=== PATIENT | male | born 1965 | race Caucasian/White ===

== ENCOUNTER 2018-09-29 14:27 | Inpatient (IN) | payer MEDICAID ==
[~2018-09-29] VITALS: Ht 182.9 cm; Wt 80.4 kg
[2018-09-29] MEDS ORDERED: acetaminophen 325mg tablet PO STA (14:52)
[2018-09-29] MEDS ORDERED: normal saline 1000ML IV soln IV ONE (14:55)
[2018-09-29] MEDS ORDERED: ipratropium/albuterol 3ml nebule NEB ONE (14:55)
[2018-09-29] MEDS ORDERED: methylPREDNISolone sod succ 125mg/2ml vial IV ONE (14:55)
[2018-09-29] MEDS ORDERED: levoFLOXACIN-Levaquin 750MG/D5 150 ML IV ONE (16:15)
[2018-09-29] MEDS ORDERED: vancomycin/NS 1 GM ADD-VANTAGE 250 ML IV ONE (16:15)
[2018-09-29 16:50] LABS: CLARITY,URINE SLIGHTLY CLOUDY (Clear); COLOR,URINE GREEN (Yellow); GLUCOSE, URINE NEGATIVE (Neg); KETONES,URINE NEGATIVE (Neg); LEUKOCYTE ESTERASE ,URINE NEGATIVE (Neg); NITRITES, URINE NEGATIVE (Neg); OCCULT BLOOD,URINE MODERATE (Neg); PROTEIN,URINE 30 mg/dl (Neg); UROBILINOGEN,URINE >=8.0 E.U/dL (0.2-1.0)
[2018-09-29 16:51] LABS: UA COLLECTION TYPE URINAL
[2018-09-29 16:53] LABS: BASOPHILS % (AUTO) 0.3 % (0-1); EOSINOPHILS % (AUTO) 0 % (0-6); HEMATOCRIT 32.6 % (42.0-52.0); HEMOGLOBIN 10.8 g/dl (14.0-17.9); LYMPHOCYTES # (AUTO) 1.3 X10'3 (1.1-4.8); LYMPHOCYTES % (AUTO) 8.4 % (21-51); MEAN CORPUSCULAR HEMOGLOBIN 33.9 PG (27.0-31.0); MEAN CORPUSCULAR VOLUME 102.7 FL (78-98); MEAN PLATELET VOLUME 9.1 FL (7.4-10.4); MONOCYTES % (AUTO) 12.9 % (2-12); NEUTROPHILS % (AUTO) 78.4 % (42-75); PLATELET COUNT 401 X10'3 (140-440); RED BLOOD COUNT 3.18 X10'6 (4.70-6.10); RED CELL DISTRIBUTION WIDTH 14.7 % (11.5-14.5); WHITE BLOOD COUNT 15.3 X10'3 (4.5-11.0)
[2018-09-29 17:08] LABS: SQUAMOUS EPITHELIAL CELL,UR FEW /LPF (FEW)
[2018-09-29 17:09] LABS: BACTERIA,URINE 1+ /HPF (Neg); FINE GRANULAR CAST 0-3 /LPF (NEGATIVE); RBC,URINE 0-2 /HPF (0-2); WBC,URINE 0-4 /HPF (0-4)
--- NOTE | 2018-09-29 17:20 | NUR ---
FOUND EXTENDED IV INFILTRATED. CALLED PHARMACY REGUARDING EXTRAVASATION OF LEVAQUIN. PHARMACIST STATES THAT IRRITATION IS MINIMAL AND WARM COMPRESSES ARE APPROPRIATE.
[2018-09-29 17:22] LABS: ALANINE AMINOTRANSFERASE 159 U/L (12-78); ALBUMIN 2.6 G/DL (3.4-5.0); ALBUMIN/GLOBULIN RATIO 0.7 (1.1-1.5); ALKALINE PHOSPHATASE 47 IU/L (46-116); ANION GAP 6 (8-16); ASPARTATE AMINO TRANSFERASE 128 U/L (10-37); BLOOD UREA NITROGEN 21 MG/DL (7-18); BUN/CREATININE RATIO 20.8 (5.4-32.0); CALCIUM 8.5 MG/DL (8.5-10.1); CHLORIDE 102 MMOL/L (99-107); CREATININE 1.01 MG/DL (0.60-1.10); GLUCOSE 95 MG/DL (70-104); SODIUM 140 MMOL/L (135-145); TOTAL CARBON DIOXIDE 31.8 MMOL/L (24-32); TOTAL PROTEIN 6.6 G/DL (6.4-8.2); eGFR 77 ML/MIN
[2018-09-29 17:54] LABS: TOTAL CELLS COUNTED 100
[2018-09-29 17:55] LABS: PLATELET ESTIMATE NORMAL; TOXIC GRANULATION 1+
[2018-09-29] MEDS ORDERED: morphine 4 MG/ML inj SYRINge IM ONE (17:55)
[2018-09-29 17:56] LABS: POLYCHROMASIA FEW; SCHISTOCYTES 1+
[2018-09-29] MEDS ORDERED: morphine 4 MG/ML inj SYRINge IV ONE (18:00)
--- NOTE | 2018-09-29 19:19 | NUR ---
Patient standing up in the door, vital sign equipment disconnected, IV tubing is disconnected (though meds/fluids completed). Assisted back to room, reconnected to vital sign monitor, new tubing for IV's obtained. Vanc started as ordered, 2nd liter of IV fluids hung.
[2018-09-29] MEDS ORDERED: BENZ1TAB7 PO (19:29)
[2018-09-29] MEDS ORDERED: QUET50TA22 PO (19:29)
[2018-09-29] MEDS ORDERED: DAPS100T2 PO (19:29)
[2018-09-29] MEDS ORDERED: DOLU50TA PO (19:29)
[2018-09-29] MEDS ORDERED: EMTR1TAB18 PO (19:29)
[2018-09-29] MEDS ORDERED: ERGO500056 PO (19:29)
[2018-09-29] MEDS ORDERED: morphine 4 MG/ML inj SYRINge IV PRN ×2 (19:50)
[2018-09-29] MEDS ORDERED: magnesium hydroxide 30ml (MOM) UD suspension PO PRN (19:50)
[2018-09-29] MEDS ORDERED: acetaminophen 325mg tablet PO PRN (19:50)
[2018-09-29] MEDS ORDERED: ondansetron/PF 4mg/2ml inj IV PRN (19:50)
[2018-09-29] MEDS ORDERED: mag hydrox/Alum hydrox/simeth 30ml oral suspension PO PRN (19:50)
[2018-09-29] MEDS ORDERED: vancomycin/NS 1 GM ADD-VANTAGE 250 ML IV SCH (20:00)
--- NOTE | 2018-09-29 20:35 | NUR ---
Report received from Shyam EWING, awaiting patient arrival from ED.
--- NOTE | 2018-09-29 20:41 | NUR ---
Awaiting avail transport monitor to take patient to floor.
[2018-09-29 21:00] VITALS: BP 156/92
[2018-09-29] MEDS: dextrose 5%-1/2 normal saline 1,000 ML IV SCH (23:00)
[2018-09-29] MEDS: vancomycin inj 1,250 MG in normal saline 250ml IV soln 250 ML IV SCH (23:48)
[2018-09-30] VITALS: BP 154/86
[2018-09-30] MEDS ORDERED: LORazepam 2 mg/ml vial IV ONE (01:15)
--- NOTE | 2018-09-30 02:38 | NUR ---
PATIENT REFUSED CANARY RAISER.
--- NOTE | 2018-09-30 04:30 | NUR ---
PATIENT REFUSED NASAL CANNULA AND OXYGEN. WILL CONTINUE TO MONITOR. PATIENT PACING HALLWAYS, STATES "I'M FINE" AND SHRUGS SHOULDERS.
[2018-09-30] MEDS: dextrose 5%-1/2 normal saline 1,000 ML IV SCH ×2 (05:47→15:47)
--- NOTE | 2018-09-30 06:17 | NUR ---
Patient in room LUCY 340. I have received report from GILDARDO Noble and had the opportunity to ask questions and assume patient care.
--- NOTE | 2018-09-30 06:43 | NUR ---
Problems reprioritized. Patient report given, questions answered & plan of care reviewed with Scarlet EWING.
[2018-09-30 07:00] VITALS: BP 115/91
[2018-09-30 07:52] LABS: BASOPHILS # (AUTO) 0.1 X10'3 (0-0.2); BASOPHILS % (AUTO) 0.4 % (0-1); EOSINOPHILS % (AUTO) 0.1 % (0-6); HEMATOCRIT 35.5 % (42.0-52.0); LYMPHOCYTES % (AUTO) 7.7 % (21-51); MEAN CORPUSCULAR HEMOGLOBIN 34.8 PG (27.0-31.0); MEAN CORPUSCULAR HGB CONC 33.8 g/dL (33.0-36.5); MEAN CORPUSCULAR VOLUME 102.9 FL (78-98); MONOCYTES # (AUTO) 1.6 X10'3 (0-0.9); MONOCYTES % (AUTO) 12.3 % (2-12); NEUTROPHILS % (AUTO) 79.5 % (42-75); PLATELET COUNT 385 X10'3 (140-440); RED BLOOD COUNT 3.45 X10'6 (4.70-6.10); RED CELL DISTRIBUTION WIDTH 14.4 % (11.5-14.5); WHITE BLOOD COUNT 12.6 X10'3 (4.5-11.0)
[2018-09-30] MEDS: levoFLOXACIN-Levaquin 750MG/D5 150 ML IV SCH (08:00)
[2018-09-30] MEDS: vancomycin inj 1,250 MG in normal saline 250ml IV soln 250 ML IV SCH ×2 (08:00→16:00)
[2018-09-30 08:02] LABS: ALBUMIN 2.6 G/DL (3.4-5.0); ANION GAP 7 (8-16); BLOOD UREA NITROGEN 23 MG/DL (7-18); BUN/CREATININE RATIO 26.1 (5.4-32.0); CALCIUM 8.6 MG/DL (8.5-10.1); CHLORIDE 103 MMOL/L (99-107); CREATININE 0.88 MG/DL (0.60-1.10); GLUCOSE 102 MG/DL (70-104); POTASSIUM 4.5 MMOL/L (3.5-5.1); SODIUM 138 MMOL/L (135-145); TOTAL CARBON DIOXIDE 27.8 MMOL/L (24-32); eGFR 90 ML/MIN
[2018-09-30] MEDS: enoxaparin 40mg/0.4ml syringe SUBCUT SCH (09:26)
[2018-09-30] MEDS ORDERED: OLANZapine 2.5MG tablet PO SCH (09:50)
[2018-09-30] MEDS: HYDROcodone/acetaminophen 10/325mg tab PO PRN (10:22)
--- NOTE | 2018-09-30 10:34 | NUR ---
Pt continues to remove O2 mask dropping sats. Reminded frequently. Placed closer to nursing station for obs. Phone MD for RT orders.
[2018-09-30] MEDS ORDERED: LORazepam 0.5 MG tablet PO PRN (10:35)
[2018-09-30] MEDS ORDERED: haloperidol lactate 5mg/ml inj IM ONE (10:35)
[2018-09-30] MEDS: predniSONE 20 mg tablet PO SCH (11:41)
[2018-09-30] MEDS: benztropine 1mg tablet PO SCH (11:41)
[2018-09-30] MEDS ORDERED: levoFLOXACIN 750MG TABLET PO ONE (11:55)
[2018-09-30] MEDS ORDERED: linezolid 600mg tablet PO ONE (11:55)
[2018-09-30] MEDS: ipratropium/albuterol 3ml nebule NEB SCH ×4 (11:57→23:05)
[2018-09-30 12:15] LABS: ABG BASE EXCESS -0.3 mmol/L (-2.0-3.0); ABG HCO3 24.3 mmol/L (22.0-26.0); ABG OXYGEN SATURATION 96.1 % (95-98); ABG PCO2 (T) 39.5 mmHg (35.0-48.0); ABG PH (T) 7.406 (7.350-7.450); ABG PO2 (T) 95.3 mmHg (83-108); ALLEN'S TEST Positive; FCOHb 2.3 % (0.5-1.5); FLOW 10 L/min; FMetHb 1.7 % (0.3-1.12); FO2Hb 92.3 % (94-100); TOTAL HEMOGLOBIN 12.2 G/dl (14.0-18.0)
--- NOTE | 2018-09-30 17:02 | NUR ---
Spoke with Dr South choudhury. pts increasing O2 demand. Pt currently 85% on 12 liter highflow. following RT Tx. Latest ABG otherwise normal. Pt using accessory muscles to breath and is cooperative with keeping O2 in place. Pt reports becoming dizzy with standing. Orders to Tx to Tele with Bipap were received. Awaiting bed assignment.
--- NOTE | 2018-09-30 17:30 | NUR ---
Tx pt to Tele via w/c on 15L O2. due to respiory decline. Pt to receive Bipap. RT paged to meet on unit with device. TX care to RT Laisha at bedside with Bipap. All belongings tx. Mother notified of condition and room change.
[2018-09-30 17:42] VITALS: BP 144/82
--- NOTE | 2018-09-30 17:46 | NUR ---
PAGER ID: [phone] MESSAGE: WE NEED BI PAP SETTINGS FOR PATIENT IN 5962M WHO JUST CAME FROM SURGICAL
--- NOTE | 2018-09-30 17:47 | NUR ---
PATIENT RECEIVED TO ROOM 3025A FROM SURGICAL SATS ARE 94% AND BP IS 144/82 , PATIENT IS ALERT AND ORIENTATED AND ANSWERING QUESTIONS. O2 FLOW AT 12 AND TURNED DOWN TO 10. PATIENT DOES NOT HAVE INCREASED WORK OF BREATHING AND IS RELAXD AT THIS TIME. LEAVING THE BIPAP OFF FOR NOW AND AWAITING SETTINGS FROM DR SHEETS.
--- NOTE | 2018-09-30 17:53 | NUR ---
SATS GOAL IS 88-90 % AND BIPAP IS NEEDED , PLACED AT THE BEDSIDE
[2018-09-30 19:00] VITALS: BP 138/82
[2018-09-30] MEDS: QUEtiapine 25mg tablet PO SCH (21:12)
[2018-09-30] MEDS: HYDROcodone/acetaminophen 5mg/325mg tablet PO PRN (21:14)
[2018-09-30 23:00] VITALS: BP 118/67
[2018-09-30] MEDS ORDERED: VANCOMYCIN LEVEL IV NR (23:30)
[2018-10-01] MEDS: ipratropium/albuterol 3ml nebule NEB SCH ×6 (02:37→23:00)
[2018-10-01] MEDS: dextrose 5%-1/2 normal saline 1,000 ML IV SCH ×3 (02:39→20:34)
[2018-10-01] MEDS: vancomycin inj 1,250 MG in normal saline 250ml IV soln 250 ML IV SCH ×3 (02:39→15:57)
[2018-10-01 03:00] VITALS: BP 100/50
--- NOTE | 2018-10-01 06:10 | NUR ---
Patient in room PCU 3025. I have received report from Froylan EWING and had the opportunity to ask questions and assume patient care.
[2018-10-01 06:18] LABS: EOSINOPHILS % (AUTO) 0.1 % (0-6); WHITE BLOOD COUNT 7.7 X10'3 (4.5-11.0)
[2018-10-01 06:26] LABS: BASOPHILS % (AUTO) 0.2 % (0-1); HEMATOCRIT 35.3 % (42.0-52.0); HEMOGLOBIN 11.8 g/dl (14.0-17.9); LYMPHOCYTES % (AUTO) 13.5 % (21-51); MEAN CORPUSCULAR HEMOGLOBIN 35.1 PG (27.0-31.0); MEAN CORPUSCULAR HGB CONC 33.6 g/dL (33.0-36.5); MEAN CORPUSCULAR VOLUME 104.5 FL (78-98); MEAN PLATELET VOLUME 8.7 FL (7.4-10.4); MONOCYTES # (AUTO) 0.8 X10'3 (0-0.9); MONOCYTES % (AUTO) 10.8 % (2-12); NEUTROPHILS # (AUTO) 5.8 X10'3 (1.8-7.7); NEUTROPHILS % (AUTO) 75.4 % (42-75); PLATELET COUNT 364 X10'3 (140-440); RED BLOOD COUNT 3.37 X10'6 (4.70-6.10)
[2018-10-01 06:27] LABS: ALBUMIN 2.2 G/DL (3.4-5.0); ANION GAP 3 (8-16); BLOOD UREA NITROGEN 17 MG/DL (7-18); BUN/CREATININE RATIO 19.3 (5.4-32.0); CALCIUM 8.3 MG/DL (8.5-10.1); CHLORIDE 103 MMOL/L (99-107); CREATININE 0.88 MG/DL (0.60-1.10); GLUCOSE 105 MG/DL (70-104); POTASSIUM 4.6 MMOL/L (3.5-5.1); SODIUM 140 MMOL/L (135-145); TOTAL CARBON DIOXIDE 33.9 MMOL/L (24-32); eGFR 90 ML/MIN
[2018-10-01 06:53] VITALS: BP 121/72
[2018-10-01] MEDS: predniSONE 20 mg tablet PO SCH (08:57)
[2018-10-01] MEDS: enoxaparin 40mg/0.4ml syringe SUBCUT SCH (08:57)
[2018-10-01] MEDS: HYDROcodone/acetaminophen 10/325mg tab PO PRN (09:05)
[2018-10-01] MEDS: levoFLOXACIN-Levaquin 750MG/D5 150 ML IV SCH (09:10)
[2018-10-01] MEDS: olanzapine 10mg tablet PO SCH (09:24)
[2018-10-01] MEDS: benztropine 1mg tablet PO SCH (09:25)
[2018-10-01 11:00] VITALS: BP 125/69
--- NOTE | 2018-10-01 12:13 | NUR ---
Paged hospitalist, "Roberta [phone], Please call at your convenience (nonemergent) re: [phone]."
--- NOTE | 2018-10-01 15:01 | NUR ---
Rene hospitalist, "Roberta [phone]- Rm. [phone] A, please call nurse kristian." Awaiting summons server back. Wish to make MD aware of med req. and having difficulty Addendum: 10/01/18 at 1507 by Roberta Wilde RN with bringing up phlegm.
[2018-10-01] MEDS ORDERED: benzonatate 100mg capsule PO PRN (15:10)
--- NOTE | 2018-10-01 15:44 | NUR ---
Paged hosptialist "Roberta [phone]- Rm. [phone] A. Home meds have been reviewed. He takes them all."
[2018-10-01 15:45] VITALS: BP 123/72
[2018-10-01] MEDS: Emtricitabine/Tenofov Alafenam (Descovy 200-25 mg Tablet) PO SCH (16:50)
--- NOTE | 2018-10-01 17:28 | NUR ---
Paged hospitalist "Roberta [phone]- Rm. [phone] A. Pharmacist continued meds b/c he saw it in your progress noted. Also noted a soft/liquid stool (4th one this shift) Immodium okay to order?"
[2018-10-01] MEDS: DAPSONE 100 MG TABLET PO SCH (17:54)
--- NOTE | 2018-10-01 18:19 | NUR ---
Problems reprioritized. Patient report given, questions answered & plan of care reviewed with WILLIAM EWING.
--- NOTE | 2018-10-01 18:27 | NUR ---
Patient in room PCU 3025. I have received report from Roberta EWING and had the opportunity to ask questions and assume patient care.
[2018-10-01 19:00] VITALS: BP 150/84
[2018-10-01] MEDS ORDERED: benztropine 1mg tablet PO SCH (20:00)
[2018-10-01] MEDS: HYDROcodone/acetaminophen 5mg/325mg tablet PO PRN (20:40)
[2018-10-01] MEDS: QUEtiapine 25mg tablet PO SCH (20:40)
[2018-10-01] MEDS ORDERED: QUETIAPINE FUMARATE PO SCH (21:00)
[2018-10-01 23:00] VITALS: BP 117/70
[2018-10-02] MEDS: vancomycin inj 1,250 MG in normal saline 250ml IV soln 250 ML IV SCH ×3 (00:09→17:00)
[2018-10-02 03:00] VITALS: BP 108/54
[2018-10-02] MEDS: ipratropium/albuterol 3ml nebule NEB SCH ×6 (03:16→23:18)
[2018-10-02 06:00] VITALS: BP 131/85
--- NOTE | 2018-10-02 06:41 | NUR ---
Patient in room PCU 3025. I have received report from Froylan EWING and had the opportunity to ask questions and assume patient care.
[2018-10-02] MEDS ORDERED: VANCOMYCIN LEVEL IV NR (07:30)
[2018-10-02] MEDS: dextrose 5%-1/2 normal saline 1,000 ML IV SCH (07:47)
[2018-10-02] MEDS ORDERED: furosemide 20 MG/2 ML vial IV SCH (08:00)
[2018-10-02] MEDS: Emtricitabine/Tenofov Alafenam (Descovy 200-25 mg Tablet) PO SCH (08:00)
[2018-10-02] MEDS: olanzapine 10mg tablet PO SCH (08:39)
[2018-10-02] MEDS: benztropine 1mg tablet PO SCH (08:39)
[2018-10-02] MEDS: levoFLOXACIN-Levaquin 750MG/D5 150 ML IV SCH (08:39)
[2018-10-02] MEDS: predniSONE 20 mg tablet PO SCH (08:40)
[2018-10-02] MEDS: enoxaparin 40mg/0.4ml syringe SUBCUT SCH (08:40)
[2018-10-02 10:21] LABS: BASOPHILS % (AUTO) 0 % (0-1); EOSINOPHILS % (AUTO) 0.2 % (0-6); HEMATOCRIT 38.1 % (42.0-52.0); HEMOGLOBIN 12.7 g/dl (14.0-17.9); LYMPHOCYTES # (AUTO) 1.1 X10'3 (1.1-4.8); LYMPHOCYTES % (AUTO) 8.2 % (21-51); MEAN CORPUSCULAR HEMOGLOBIN 34.4 PG (27.0-31.0); MEAN CORPUSCULAR HGB CONC 33.3 g/dL (33.0-36.5); MEAN CORPUSCULAR VOLUME 103.4 FL (78-98); MEAN PLATELET VOLUME 9.1 FL (7.4-10.4); MONOCYTES # (AUTO) 0.9 X10'3 (0-0.9); MONOCYTES % (AUTO) 7.1 % (2-12); NEUTROPHILS % (AUTO) 84.5 % (42-75); PLATELET COUNT 401 X10'3 (140-440); RED BLOOD COUNT 3.69 X10'6 (4.70-6.10); RED CELL DISTRIBUTION WIDTH 14.7 % (11.5-14.5)
[2018-10-02 11:00] VITALS: BP 138/60
[2018-10-02 11:34] LABS: ALBUMIN 2.8 G/DL (3.4-5.0); ANION GAP 5 (8-16); BLOOD UREA NITROGEN 15 MG/DL (7-18); BUN/CREATININE RATIO 14.6 (5.4-32.0); CALCIUM 8.9 MG/DL (8.5-10.1); CHLORIDE 98 MMOL/L (99-107); CREATININE 1.03 MG/DL (0.60-1.10); GLUCOSE 98 MG/DL (70-104); POTASSIUM 3.7 MMOL/L (3.5-5.1); SODIUM 140 MMOL/L (135-145); TOTAL CARBON DIOXIDE 37.1 MMOL/L (24-32); VANCOMYCIN,TROUGH 14.4 UG/ML (6.0-14.0); eGFR 75 ML/MIN
--- NOTE | 2018-10-02 13:33 | NUR ---
Vanco trough at 10:40 14.4
[2018-10-02 15:00] VITALS: BP 108/43
[2018-10-02] MEDS ORDERED: VANCOMYCIN LEVEL IV ONE (15:30)
--- NOTE | 2018-10-02 16:59 | NUR ---
vanco trough 21.2. Dr. Chavez paged with results. Holding vanco IVPB
[2018-10-02] MEDS: DAPSONE 100 MG TABLET PO SCH (17:16)
[2018-10-02] MEDS: potassium Cl 20 mEq SR tablet PO SCH (17:37)
--- NOTE | 2018-10-02 18:35 | NUR ---
Problems reprioritized. Patient report given, questions answered & plan of care reviewed with Deep RN.
[2018-10-02 19:00] VITALS: BP 123/80
[2018-10-02] MEDS: QUEtiapine 25mg tablet PO SCH (20:47)
[2018-10-02] MEDS: lactobacillus rhamnosus 10,000 MMU CELLS/CAPSULE PO SCH (20:49)
[2018-10-02] MEDS: furosemide 20 MG/2 ML vial IV SCH (20:49)
[2018-10-02 23:00] VITALS: BP 102/61
[2018-10-03] MEDS: vancomycin inj 1,250 MG in normal saline 250ml IV soln 250 ML IV SCH ×3 (00:24→16:18)
[2018-10-03 03:00] VITALS: BP 106/57
[2018-10-03] MEDS: ipratropium/albuterol 3ml nebule NEB SCH ×6 (03:02→23:11)
[2018-10-03 05:29] LABS: BASOPHILS # (AUTO) 0.1 X10'3 (0-0.2); EOSINOPHILS # (AUTO) 0.1 X10'3 (0-0.9); EOSINOPHILS % (AUTO) 0.8 % (0-6); HEMATOCRIT 31.6 % (42.0-52.0); HEMOGLOBIN 10.5 g/dl (14.0-17.9); LYMPHOCYTES # (AUTO) 1.2 X10'3 (1.1-4.8); LYMPHOCYTES % (AUTO) 18.5 % (21-51); MEAN CORPUSCULAR HEMOGLOBIN 35.2 PG (27.0-31.0); MEAN CORPUSCULAR HGB CONC 33.4 g/dL (33.0-36.5); MEAN CORPUSCULAR VOLUME 105.3 FL (78-98); MEAN PLATELET VOLUME 8.8 FL (7.4-10.4); MONOCYTES # (AUTO) 0.5 X10'3 (0-0.9); MONOCYTES % (AUTO) 7.2 % (2-12); NEUTROPHILS # (AUTO) 4.6 X10'3 (1.8-7.7); NEUTROPHILS % (AUTO) 72.5 % (42-75); PLATELET COUNT 353 X10'3 (140-440); RED CELL DISTRIBUTION WIDTH 14.5 % (11.5-14.5); WHITE BLOOD COUNT 6.4 X10'3 (4.5-11.0)
[2018-10-03 06:00] VITALS: BP 128/76
[2018-10-03 06:17] LABS: ALBUMIN 2.3 G/DL (3.4-5.0); ANION GAP 4 (8-16); BLOOD UREA NITROGEN 18 MG/DL (7-18); BUN/CREATININE RATIO 19.1 (5.4-32.0); CALCIUM 8.5 MG/DL (8.5-10.1); CHLORIDE 100 MMOL/L (99-107); CREATININE 0.94 MG/DL (0.60-1.10); GLUCOSE 118 MG/DL (70-104); POTASSIUM 3.5 MMOL/L (3.5-5.1); SODIUM 140 MMOL/L (135-145); TOTAL CARBON DIOXIDE 36.3 MMOL/L (24-32); eGFR 83 ML/MIN
--- NOTE | 2018-10-03 07:09 | NUR ---
Patient in room PCU 3025. I have received report from GILDARDO KNIGHT and had the opportunity to ask questions and assume patient care.
[2018-10-03] MEDS: Emtricitabine/Tenofov Alafenam (Descovy 200-25 mg Tablet) PO SCH (08:00)
[2018-10-03] MEDS: furosemide 20 MG/2 ML vial IV SCH ×2 (08:23→20:29)
[2018-10-03] MEDS: benztropine 1mg tablet PO SCH (08:30)
[2018-10-03] MEDS: predniSONE 20 mg tablet PO SCH (08:30)
[2018-10-03] MEDS: lactobacillus rhamnosus 10,000 MMU CELLS/CAPSULE PO SCH ×2 (08:30→20:29)
[2018-10-03] MEDS: olanzapine 10mg tablet PO SCH (08:33)
[2018-10-03] MEDS: enoxaparin 40mg/0.4ml syringe SUBCUT SCH (08:34)
[2018-10-03] MEDS: potassium Cl 20 mEq SR tablet PO SCH ×2 (08:35→17:00)
[2018-10-03 11:00] VITALS: BP 151/101
--- NOTE | 2018-10-03 11:52 | NUR ---
Initial: Pt admit DX bilateral PNA w/ cavitary lesion, acute respiratory failure, and encephalopathy secondary to sepsis per MD note. Hx HIV, substance and tobacco use, and COPD. PO 100% regular diet meeting needs. LBM 10/01. BRANN[facility] [employer] for B12 labs given MCV 105.3; may require supplementation. Will continue to monitor. Rec: 1. continue regular diet 2. B12 lab per for MCV 105.3 3. wt per rx Addendum: 10/03/18 at [address] Amended: Links added.
[2018-10-03] MEDS: levoFLOXACIN 750MG TABLET PO SCH (12:08)
--- NOTE | 2018-10-03 12:34 | NUR ---
paged Dr. Dia PAGER ID: [phone] MESSAGE: arely [facility] [phone] can we d/c sitter in 25a Milton gustafson?
[2018-10-03] MEDS: HYDROcodone/acetaminophen 5mg/325mg tablet PO PRN (14:21)
--- NOTE | 2018-10-03 14:45 | NUR ---
CALL TO MOTHER ,SPOKE TO "BROTHER AARON" WILL BRING HOME MEDS FOR USE HERE. 2 MEDS NOT AVAILABLE. BROTHER BRINGING THEM.
[2018-10-03 15:00] VITALS: BP 99/75
[2018-10-03] MEDS: DAPSONE 100 MG TABLET PO SCH (17:01)
[2018-10-03] MEDS ORDERED: Emtricitabine/Tenofov Alafenam (Descovy 200-25 mg Tablet) PO ONE (17:30)
--- NOTE | 2018-10-03 18:30 | NUR ---
Patient in room PCU 3025. I have received report from Lucas EWING and had the opportunity to ask questions and assume patient care.
--- NOTE | 2018-10-03 18:37 | NUR ---
Problems reprioritized. Patient report given, questions answered & plan of care reviewed with GILDARDO MACIAS.
--- NOTE | 2018-10-03 19:33 | NUR ---
Pharmacy notification: Spoke with Denisa in pharmacy regarding fourth vanco dose at midnight. Trough will not be drawn tonholden ambrose held yesterday at 1600. Trough will be drawn before 8 am dose tomorrow 10/04
[2018-10-03 20:00] VITALS: BP 101/62
[2018-10-03] MEDS: QUEtiapine 25mg tablet PO SCH (20:29)
[2018-10-04] VITALS (7 sets, daily range): BP systolic 63–145; BP diastolic 53–89
[2018-10-04] MEDS: vancomycin inj 1,250 MG in normal saline 250ml IV soln 250 ML IV SCH ×2 (00:43→08:22)
[2018-10-04] MEDS: ipratropium/albuterol 3ml nebule NEB SCH ×6 (03:00→23:20)
[2018-10-04 05:09] LABS: BASOPHILS # (AUTO) 0.1 X10'3 (0-0.2); BASOPHILS % (AUTO) 0.7 % (0-1); EOSINOPHILS % (AUTO) 0.4 % (0-6); HEMATOCRIT 30.8 % (42.0-52.0); HEMOGLOBIN 10.5 g/dl (14.0-17.9); LYMPHOCYTES # (AUTO) 1.1 X10'3 (1.1-4.8); LYMPHOCYTES % (AUTO) 15.3 % (21-51); MEAN CORPUSCULAR HEMOGLOBIN 35.5 PG (27.0-31.0); MEAN CORPUSCULAR HGB CONC 34.1 g/dL (33.0-36.5); MEAN CORPUSCULAR VOLUME 104.2 FL (78-98); MEAN PLATELET VOLUME 8.5 FL (7.4-10.4); MONOCYTES # (AUTO) 0.9 X10'3 (0-0.9); MONOCYTES % (AUTO) 12.2 % (2-12); NEUTROPHILS # (AUTO) 5.3 X10'3 (1.8-7.7); NEUTROPHILS % (AUTO) 71.4 % (42-75); PLATELET COUNT 433 X10'3 (140-440); RED BLOOD COUNT 2.95 X10'6 (4.70-6.10); RED CELL DISTRIBUTION WIDTH 15.2 % (11.5-14.5); WHITE BLOOD COUNT 7.4 X10'3 (4.5-11.0)
--- NOTE | 2018-10-04 05:29 | NUR ---
notification: Vanco trough 26.2. Pharmacy is managing vanco dosing. Imtiaz in pharmacy stated the trough was drawn to soon after last dose. It was timed for 0730. It will be drawn again at 0730 as ordered.
[2018-10-04 05:47] LABS: ALBUMIN 2.3 G/DL (3.4-5.0); ANION GAP 8 (8-16); BLOOD UREA NITROGEN 24 MG/DL (7-18); BUN/CREATININE RATIO 23.5 (5.4-32.0); CALCIUM 8.7 MG/DL (8.5-10.1); CHLORIDE 102 MMOL/L (99-107); CREATININE 1.02 MG/DL (0.60-1.10); GLUCOSE 133 MG/DL (70-104); POTASSIUM 3.4 MMOL/L (3.5-5.1); SODIUM 141 MMOL/L (135-145); TOTAL CARBON DIOXIDE 31.5 MMOL/L (24-32); eGFR 76 ML/MIN
--- NOTE | 2018-10-04 06:30 | NUR ---
Patient in room PCU 3025. I have received report from GILDARDO EDMOND and had the opportunity to ask questions and assume patient care.
--- NOTE | 2018-10-04 06:33 | NUR ---
Problems reprioritized. Patient report given, questions answered & plan of care reviewed with Lucas RN.
--- NOTE | 2018-10-04 06:57 | NUR ---
PAGER ID: [phone] MESSAGE: DR. SHEETS, [id number]/Danette BRICE+ 3.4. NO REPLACEMENT ORDERS. NADER [phone]. TY.
[2018-10-04] MEDS ORDERED: VANCOMYCIN LEVEL IV ONE (07:30)
--- NOTE | 2018-10-04 08:01 | NUR ---
VANCO DOSE NOT AVAILABLE. CALL TO RX, "NIT" WILL SEND.
[2018-10-04] MEDS: furosemide 20 MG/2 ML vial IV SCH ×2 (08:04→22:21)
[2018-10-04] MEDS: benztropine 1mg tablet PO SCH (08:05)
[2018-10-04] MEDS: lactobacillus rhamnosus 10,000 MMU CELLS/CAPSULE PO SCH ×2 (08:05→22:22)
[2018-10-04] MEDS: Emtricitabine/Tenofov Alafenam (Descovy 200-25 mg Tablet) PO SCH (08:06)
[2018-10-04] MEDS: olanzapine 10mg tablet PO SCH (08:07)
[2018-10-04] MEDS: predniSONE 20 mg tablet PO SCH (08:07)
[2018-10-04] MEDS: enoxaparin 40mg/0.4ml syringe SUBCUT SCH (08:08)
[2018-10-04] MEDS: potassium Cl 20 mEq SR tablet PO SCH ×2 (08:08→17:25)
--- NOTE | 2018-10-04 08:13 | NUR ---
PAGER ID: [phone] MESSAGE: DR. SHEETS, 6002H/YUNIEL, [facility] LEVEL 20.4 NADER [phone]. TY
[2018-10-04] MEDS ORDERED: potassium Cl 20 mEq SR tablet PO STA (08:48)
--- NOTE | 2018-10-04 10:13 | NUR ---
PAGED RADIOLOGY:ISA [id number] IS READY FOR 2 VIEW. NADER [phone]. TY
[2018-10-04] MEDS: levoFLOXACIN 750MG TABLET PO SCH (11:04)
--- NOTE | 2018-10-04 13:26 | NUR ---
RA SAT 94% AT REST. AMB 600 FEET ON RA, SAT 92-95% WITH AMB. Addendum: 10/04/18 at 1412 by Vazquez Ocampo RN WRONG PT.DISREGARD.
--- NOTE | 2018-10-04 14:13 | NUR ---
AMB 450 FEET WITH SBA ON 6L/NC. WELL MEGAN.
[2018-10-04] MEDS: DAPSONE 100 MG TABLET PO SCH (17:25)
--- NOTE | 2018-10-04 18:13 | NUR ---
Patient in room PCU 3025. I have received report from Lucas EWING and had the opportunity to ask questions and assume patient care. pt currently sitting up in chair getting vitals taken. Pleasant man. No complaints or requests at this time. he is on 6L high flow. No tele orders. Was a sitter in the past, but did not need it today. Hx of HIV. MEDS are now available in his pt specific per report. Family brought up yesterday.
--- NOTE | 2018-10-04 18:13 | NUR ---
Problems reprioritized. Patient report given, questions answered & plan of care reviewed with GILDARDO SUNG.
[2018-10-04] MEDS: QUEtiapine 25mg tablet PO SCH (22:22)
[2018-10-05 03:00] VITALS: BP 90/53
[2018-10-05] MEDS: ipratropium/albuterol 3ml nebule NEB SCH ×3 (03:00→12:56)
[2018-10-05 06:00] VITALS: BP 105/71
--- NOTE | 2018-10-05 06:29 | NUR ---
Problems reprioritized. Patient report given, questions answered & plan of care reviewed with NADER RN.
--- NOTE | 2018-10-05 06:57 | NUR ---
Patient in room PCU 3025. I have received report from GILDARDO SUNG and had the opportunity to ask questions and assume patient care.
[2018-10-05] MEDS ORDERED: predniSONE 20 mg tablet PO SCH (08:00)
[2018-10-05] MEDS: benztropine 1mg tablet PO SCH (08:29)
[2018-10-05] MEDS: furosemide 20 MG/2 ML vial IV SCH (08:29)
[2018-10-05] MEDS: lactobacillus rhamnosus 10,000 MMU CELLS/CAPSULE PO SCH (08:29)
[2018-10-05] MEDS: Emtricitabine/Tenofov Alafenam (Descovy 200-25 mg Tablet) PO SCH (08:30)
[2018-10-05] MEDS: olanzapine 10mg tablet PO SCH (08:31)
[2018-10-05] MEDS: enoxaparin 40mg/0.4ml syringe SUBCUT SCH (08:32)
[2018-10-05] MEDS: potassium Cl 20 mEq SR tablet PO SCH (08:35)
--- NOTE | 2018-10-05 09:10 | NUR ---
O2 Sat at rest on room air:_86_% If below 89%: Recovery O2 Sat at rest on _2__LPM:___%:__93_% via NC (mask/nasal cannula, etc..) No further documentation is necessary. If O2 Sat did not drop below 89% on room air,ambulate patient on room air. O2 Sat while ambulating on room air:___% Recovery O2 Sat while ambulating on ___LPM:___% No further documentation is necessary. If patient does not drop below 89% while ambulating, he/she does not qualify for home O2.
--- NOTE | 2018-10-05 09:11 | NUR ---
AMB 300 FEET ON 2L/NC. SATS 90-92% WELL MEGAN. SLIGHT SOB.
--- NOTE | 2018-10-05 10:44 | NUR ---
PAGED RT: R/T [id number], PLEASE CALL NADER [phone]. TY.
[2018-10-05] MEDS ORDERED: PRED20TA PO (10:58)
[2018-10-05] MEDS ORDERED: LEVO750T21 PO (10:58)
[2018-10-05 11:00] VITALS: BP 120/77
[2018-10-05] MEDS: levoFLOXACIN 750MG TABLET PO SCH (11:10)
== END 2018-10-05 14:30 | disposition home or self-care (01) | DRG 720 ==
LOC: ER 14:29 → ED HOLD 19:47 → EDBEDREQ 20:10 → SUR 3N 20:58 → PCU 3S 09-30 17:40
PROVIDERS: ADMIT Internal Medicine; ATTEND Family Medicine
DX: A41.9 Sepsis, unspecified organism (principal); J96.01 Acute respiratory failure with hypoxia; G93.40 Encephalopathy, unspecified; J18.9 Pneumonia, unspecified organism; J44.0 Chronic obstructive pulmonary disease with (acute) lower respiratory infection; J44.1 Chronic obstructive pulmonary disease with (acute) exacerbation; F17.210 Nicotine dependence, cigarettes, uncomplicated; R60.9 Edema, unspecified; D53.9 Nutritional anemia, unspecified; F29 Unspecified psychosis not due to a substance or known physiological condition; R74.0 Nonspecific elevation of levels of transaminase and lactic acid dehydrogenase [LDH]; Z88.2 Allergy status to sulfonamides; Z79.899 Other long term (current) drug therapy
CPT/HCPCS: 36415; 36600; 71045; 71046; 71250; 80048; 80053; 80202; 81001; 82803; 82948; 83605; 84145; 85018; 85025; 87040; 87045; 87046; 87070; 87502; 87503; 89055; 93005; 94640; 94660; 94667; 94668; 94760; 96365; 96366; 96367; 96375; 99285; G0378; J1630; J1650; J1940; J1956; J2060; J2270; J2930; J3370; J3490; J7030; J7512

== ENCOUNTER 2020-08-09 10:12 | Inpatient (IN) | payer MEDICAID ==
[~2020-08-09] VITALS: Ht 182.9 cm; Wt 95.5 kg
[~2020-08-09 10:12] MED LIST: BENZ1TAB7 PO; DAPS100T2 PO; DOLU50TA PO; EMTR1TAB18 PO; ERGO500056 PO; QUET50TA22 PO
--- NOTE | 2020-08-09 10:38 | NUR ---
Dr Herron ok'd the use of central line.
--- NOTE | 2020-08-09 11:27 | NUR ---
APPLIED BIOPATCH AND CHANGED CENTRAL LINE DRESSING, ALL LINES FLUSH WELL AND DRAW BACK WITHOUT ANY RESISTANCE.
[2020-08-09 11:31] LABS: BASOPHILS % (AUTO) 0.3 % (0-1); EOSINOPHILS % (AUTO) 0 % (0-6); HEMATOCRIT 36.9 % (42.0-52.0); HEMOGLOBIN 12.7 g/dl (14.0-17.9); LYMPHOCYTES # (AUTO) 0.5 X10'3 (1.1-4.8); LYMPHOCYTES % (AUTO) 6.4 % (21-51); MEAN CORPUSCULAR HEMOGLOBIN 35.2 PG (27.0-31.0); MEAN CORPUSCULAR HGB CONC 34.3 g/dL (33.0-36.5); MEAN CORPUSCULAR VOLUME 102.9 FL (78-98); MEAN PLATELET VOLUME 7.9 FL (7.4-10.4); MONOCYTES # (AUTO) 0.3 X10'3 (0-0.9); MONOCYTES % (AUTO) 3.8 % (2-12); NEUTROPHILS # (AUTO) 6.8 X10'3 (1.8-7.7); NEUTROPHILS % (AUTO) 89.5 % (42-75); PLATELET COUNT 247 X10'3 (140-440); RED BLOOD COUNT 3.59 X10'6 (4.70-6.10); RED CELL DISTRIBUTION WIDTH 14.2 % (11.5-14.5); WHITE BLOOD COUNT 7.6 X10'3 (4.5-11.0)
[2020-08-09 11:38] LABS: ALANINE AMINOTRANSFERASE 69 U/L (12-78); ALBUMIN 4.1 G/DL (3.4-5.0); ALBUMIN/GLOBULIN RATIO 1.1 (1.1-1.5); ALKALINE PHOSPHATASE 58 IU/L (46-116); ANION GAP 15 (8-16); ASPARTATE AMINO TRANSFERASE 118 U/L (10-37); BILIRUBIN,TOTAL 0.4 MG/DL (0.1-1.0); BLOOD UREA NITROGEN 27 MG/DL (7-18); BUN/CREATININE RATIO 13.2 (5.4-32.0); CALCIUM 8.3 MG/DL (8.5-10.1); CHLORIDE 94 MMOL/L (99-107); CREATININE 2.05 MG/DL (0.60-1.10); GLUCOSE 169 MG/DL (70-104); POTASSIUM 4.3 MMOL/L (3.5-5.1); SODIUM 132 MMOL/L (135-145); TOTAL CARBON DIOXIDE 23.5 MMOL/L (24-32); eGFR 34 ML/MIN
[2020-08-09] MEDS ORDERED: potassium Cl 20 mEq SR tablet PO PRN ×2 (11:40)
[2020-08-09] MEDS ORDERED: magnesium 2GM in 50ml NS 50 ML IV PRN (11:40)
[2020-08-09] MEDS ORDERED: magnesium 4gm in 100ml NS 100 ML IV PRN (11:40)
[2020-08-09] MEDS ORDERED: mag hydrox/Alum hydrox/simeth 30ml oral suspension PO PRN (11:40)
[2020-08-09] MEDS ORDERED: acetaminophen 325mg tablet PO PRN ×2 (11:40)
[2020-08-09] MEDS ORDERED: magnesium Cl slow-release 64mg tablet PO PRN (11:40)
[2020-08-09] MEDS ORDERED: potassium Cl 40MEQ/1/2NS 520ml 520 ML IV PRN ×2 (11:40)
[2020-08-09] MEDS ORDERED: ondansetron/PF 4mg/2ml inj IV PRN (11:40)
[2020-08-09] MEDS: albuterol 2.5 MG/3 ML nebule NEB SCH ×4 (12:00→23:56)
--- NOTE | 2020-08-09 12:15 | NUR ---
Patient in room ED 7. I have received report from Arturo ROSS RN and had the opportunity to ask questions and assume patient care.
--- NOTE | 2020-08-09 12:45 | NUR ---
Patient arrived to room 3012B. Patient was able to transfer self into bed, a 2 RN skin check was complete, mrsa swab and vitals. VSS: BP 134/74, HR 117, Temp: 98.3 oral, O2 96%2LNC, Pain 03/19. Pain is sy Addendum: 08/09/20 at 1330 by Florinda Diamond RN Pain stated in legs, left leg has history of DVT, and left arm from last central line red, swollen and warm to touch. Will continue to monitor.
[2020-08-09] MEDS ORDERED: ERGO500056 PO (12:56)
[2020-08-09] MEDS ORDERED: LISI1TAB51 PO (12:56)
[2020-08-09] MEDS ORDERED: RIVA20TA PO (12:56)
[2020-08-09 13:00] VITALS: BP 134/74
--- NOTE | 2020-08-09 13:45 | NUR ---
CALLED DR THOMAS REGARDING PICC ORDER FOR PATIENT. PT CURRENTLY HAS A SUBCLAVIAN LINE PLACED BY [facility]. PER DR THOMAS PT DOES NOT NEED A CENTRAL LINE. I ADVISED DR THOMAS SHE HAD SIGNED AN ORDER FOR PICC PLACEMENT BUT THAT PATIENT DIDN'T APPEAR TO NEED A CENTRAL LINE. DR THOMAS STATED "I DO NOT NEED YOU TO TELL ME WHAT I ORDERED I DO NOT WANT A CENTRAL LINE IN MY PATIENT." I ADVISED HER AGAIN THAT SHE HAD ORDERED ELECTRONICALLY AND SIGNED AN ORDER FOR A PICC AND CONFIRMED ONE MORE TIME THAT SHE DID NOT WANT THE PICC LINE. DR THOMAS STATED HE IS A HARD STICK. NO PICC WILL BE PLACED. Darrius WEBER PICC GILDARDO
--- NOTE | 2020-08-09 14:15 | NUR ---
Central line DCD. Patient tolerated well. Held pressure for 5 minutes and adhere gauze and Tegaderm. Will continue to monitor.
[2020-08-09] MEDS: HYDROcodone/acetaminophen 5mg/325mg tablet PO PRN (14:46)
[2020-08-09] MEDS: LORazepam 2 mg/ml vial IV PRN ×4 (14:51→23:37)
[2020-08-09 15:00] VITALS: BP 145/84
--- NOTE | 2020-08-09 15:29 | NUR ---
Rene Alejandra PAGER ID: [phone] MESSAGE: Re: Krzysztof Roman RM [id number]. Pt complaining of lower leg pain, after with pain meds, Pt states he has history of DVTs. Please advise Florinda EWING [phone] Addendum: 08/09/20 at 1530 by Florinda Diamond RN Did not put on SCDS due to pt complaining of leg pain and has history of dvts. Contacted for direction. Addendum: 08/09/20 at 1603 by Florinda Diamond RN Dr. Alejandra responded and will be up to assess patient soon. was also made aware that there is blood in stool. Will continue to monitor.
[2020-08-09 18:00] VITALS: BP 117/77
--- NOTE | 2020-08-09 18:20 | NUR ---
Report was given to Antonio RN. Nurse understands that u is still to come up and assess pt. Patient expresses pain, anxiety and blood in stool. Dr. Alejandra would like a occult stool done at bedside, the cards in Lab were unavailable due to covid rapid test being done. Noc nurse is aware that pt needs a RT eval, and whether or not to apply SCDS due to history of DVTs and pain in legs. Hopefully physician will address issues. Pts brother also called named, Edenilson, and was added to SBAR. Edenilson stated that his brother does this often and leaves AMA. Will continue to monitor.
--- NOTE | 2020-08-09 18:44 | NUR ---
Problems reprioritized. Patient report given, questions answered & plan of care reviewed with Antnoio EWING.
--- NOTE | 2020-08-09 18:46 | NUR ---
Patient in room PCU 3012. I have received report from PORTILLO Valdes and had the opportunity to ask questions and assume patient care.
[2020-08-09] MEDS: morphine 2 MG/ML inj. syringe IV PRN (19:02)
[2020-08-09] MEDS: K and/or MAG REPLACEMENT MC SCH (20:00)
[2020-08-09] MEDS: methylPREDNISolone sod succ 125mg/2ml vial IV SCH (20:46)
[2020-08-09] MEDS: heparin, porcine 5000 units/ml vial SQ SCH (20:47)
[2020-08-09] MEDS ORDERED: temazepam 15mg capsule PO PRN (21:00)
[2020-08-09 22:00] VITALS: BP 146/91
[2020-08-10] MEDS: morphine 2 MG/ML inj. syringe IV PRN ×3 (00:29→19:35)
[2020-08-10 02:00] VITALS: BP 102/67
[2020-08-10] MEDS: albuterol 2.5 MG/3 ML nebule NEB SCH ×6 (03:17→22:37)
--- NOTE | 2020-08-10 06:53 | NUR ---
Problems reprioritized. Patient report given, questions answered & plan of care reviewed with PORTILLO Valdes
--- NOTE | 2020-08-10 06:58 | NUR ---
Patient in room PCU 3012. I have received report from Antonio EWING and had the opportunity to ask questions and assume patient care.
[2020-08-10 07:00] VITALS: BP 128/63
[2020-08-10] MEDS: K and/or MAG REPLACEMENT MC SCH ×2 (08:00→20:00)
[2020-08-10] MEDS: LORazepam 2 mg/ml vial IV PRN ×6 (08:29→23:36)
[2020-08-10] MEDS: methylPREDNISolone sod succ 125mg/2ml vial IV SCH ×2 (08:38→19:55)
[2020-08-10] MEDS: heparin, porcine 5000 units/ml vial SQ SCH (08:38)
[2020-08-10] MEDS: HYDROcodone/acetaminophen 5mg/325mg tablet PO PRN ×2 (08:38→13:00)
[2020-08-10] MEDS: nicotine 14mg patch - 24hr TD SCH (08:40)
[2020-08-10] MEDS: CefTRIAXone 2gm/D5W 50ml BAG 50 ML IV SCH (08:48)
[2020-08-10 09:18] LABS: BASOPHILS % (AUTO) 0.1 % (0-1); EOSINOPHILS % (AUTO) 0 % (0-6); HEMATOCRIT 39.1 % (42.0-52.0); HEMOGLOBIN 13.4 g/dl (14.0-17.9); LYMPHOCYTES # (AUTO) 0.7 X10'3 (1.1-4.8); LYMPHOCYTES % (AUTO) 6.1 % (21-51); MEAN CORPUSCULAR HEMOGLOBIN 35.3 PG (27.0-31.0); MEAN CORPUSCULAR HGB CONC 34.2 g/dL (33.0-36.5); MEAN PLATELET VOLUME 8.6 FL (7.4-10.4); MONOCYTES # (AUTO) 0.7 X10'3 (0-0.9); MONOCYTES % (AUTO) 6.3 % (2-12); NEUTROPHILS # (AUTO) 9.8 X10'3 (1.8-7.7); NEUTROPHILS % (AUTO) 87.5 % (42-75); PLATELET COUNT 241 X10'3 (140-440); RED CELL DISTRIBUTION WIDTH 14.5 % (11.5-14.5); WHITE BLOOD COUNT 11.2 X10'3 (4.5-11.0)
[2020-08-10 09:29] LABS: ALANINE AMINOTRANSFERASE 76 U/L (12-78); ALBUMIN 4.2 G/DL (3.4-5.0); ALBUMIN/GLOBULIN RATIO 1.1 (1.1-1.5); ALKALINE PHOSPHATASE 55 IU/L (46-116); ANION GAP 11 (8-16); ASPARTATE AMINO TRANSFERASE 124 U/L (10-37); BILIRUBIN,TOTAL 0.7 MG/DL (0.1-1.0); BLOOD UREA NITROGEN 36 MG/DL (7-18); BUN/CREATININE RATIO 24.2 (5.4-32.0); CALCIUM 8.9 MG/DL (8.5-10.1); CHLORIDE 97 MMOL/L (99-107); CREATININE 1.49 MG/DL (0.60-1.10); GLUCOSE 144 MG/DL (70-104); MAGNESIUM 2.6 MG/DL (1.5-2.4); POTASSIUM 4.3 MMOL/L (3.5-5.1); SODIUM 134 MMOL/L (135-145); TOTAL CARBON DIOXIDE 26.2 MMOL/L (24-32); TOTAL PROTEIN 8.1 G/DL (6.4-8.2); eGFR 49 ML/MIN
--- NOTE | 2020-08-10 10:00 | NUR ---
Dr. Alejandra at bedside with patient and nurse. Stool sample was obtained and came back negative for blood. MD is aware of patient's condition and the extreme shaking that is demonstrated. MD believes that it is not any seizure activity, No fluids. RT consult was obtained. It appeared that patient would stop shaking when told to and the whole body did not experience the tremors. Will continue to monitor.
[2020-08-10] MEDS ORDERED: Emtricitabine/Tenofov Alafenam (Descovy 200-25 mg Tablet) PO SCH (11:00)
[2020-08-10] MEDS ORDERED: DOLUTEGRAVIR SODIUM 50 MG PO SCH (11:00)
--- NOTE | 2020-08-10 12:15 | NUR ---
Arturo from PICC was able to place a central line in Right upper arm, it drawls as well. Will continue to monitor.
--- NOTE | 2020-08-10 12:41 | NUR ---
Called brother, Edenilson, to acquire home medications that was faxed from pharmacy. Left message in regards to having medications brought to hospital. Will continue to monitor.
--- NOTE | 2020-08-10 12:48 | NUR ---
5F DUAL LUMEN MIDLINE PLACED TO RIGHT BASILIC VEIN X's 1 ATTEMPT WITH SUCCESS USING ULTRASOUND GUIDANCE, TIP ENDS MID-AXILLARY, BOTH LUMENS ASPIRATE BLOOD AND FLUSH WITHOUT DIFFICULTY. REF 46-025 LOT [id number] Addendum: 08/10/20 at 1255 by Jovan Marcelo RN (Tony) Amended: Links added. Addendum: 08/10/20 at 1257 by Jovan Marcelo (Tony) RN Amended: Links added.
--- NOTE | 2020-08-10 13:33 | NUR ---
Patient complained of crushing pressure chest pain. VSS, obtained a [address] francis notified and reviewed strip.Sinus Tachy. Continue to monitor, patient has bad anxiety.
--- NOTE | 2020-08-10 14:41 | NUR ---
Patient keeps complaining of pain. Morphine given. Will continue to monitor. No call back from brother yet.
[2020-08-10 15:00] VITALS: BP 127/86
--- NOTE | 2020-08-10 16:17 | NUR ---
Paged Dr. Alejandra PAGER ID: [phone] MESSAGE: Re: AbelMilton RM [id number]. Pt is SOB, Lungs sounds on rt sound wet, sat 90% on 3LNC, patient appears anxious. Please advise Florinda EWING [phone]
[2020-08-10 16:51] LABS: ABG BASE EXCESS 2.4 mmol/L (-2.0-2.0); ABG HCO3 26.7 mmol/L (22.0-26.0); ABG OXYGEN SATURATION 95.1 % (94-97); ABG PCO2 (T) 40.3 mmHg (35.0-48.0); ALLEN'S TEST POSITIVE; FCOHb 0.6 % (0.0-3.9); FLOW 3 L/min; FMetHb 0.3 % (0.0-1.5); FO2Hb 94.2 % (94-97); TOTAL HEMOGLOBIN 13.8 G/dl (14.0-18.0)
--- NOTE | 2020-08-10 17:41 | NUR ---
Edenilson called regarding the home medications that is needed for patient. Edenilson explained that at this time we are unable to have access to trailer to where his medications are kept. Edenilson will try to get to the trailer Thursday but no guarantees, I will notify
--- NOTE | 2020-08-10 18:21 | NUR ---
Paged Dr. Alejandra PAGER ID: [phone] MESSAGE: Re: Milton Roman [id number] FYI CT results are back. Please advise Long EWING [phone] Addendum: 08/10/20 at 1855 by Florinda Diamond RN Dr. Alejandra aware of images No New Orders at this time
--- NOTE | 2020-08-10 18:59 | NUR ---
Patient in room PCU 3012. I have received report from PORTILLO and had the opportunity to ask questions and assume patient care.
[2020-08-10] MEDS: benztropine 1mg tablet PO SCH (19:32)
[2020-08-10] MEDS ORDERED: QUEtiapine 25mg tablet PO SCH (21:00)
--- NOTE | 2020-08-10 21:40 | NUR ---
PAGER ID: [phone] MESSAGE: Re: Abel Milton [id number]. pt c/o no BM for 1 week despite having "boxes of laxatives" at home. Pt c/o moderate abdominal distention. david 83Leonard. REHAN notified
[2020-08-10] MEDS: magnesium hydroxide 30ml (MOM) UD suspension PO PRN (21:44)
[2020-08-10] MEDS ORDERED: bisacodyl 10mg suppository rectal RC PRN (21:45)
[2020-08-10] MEDS: docusate sod 100mg capsule PO SCH (23:20)
[2020-08-11] MEDS: LORazepam 2 mg/ml vial IV PRN ×3 (01:13→07:04)
[2020-08-11 02:00] VITALS: BP 145/96
[2020-08-11] MEDS: albuterol 2.5 MG/3 ML nebule NEB SCH ×2 (03:41→06:54)
[2020-08-11 06:03] LABS: BASOPHILS % (AUTO) 0 % (0-1); EOSINOPHILS % (AUTO) 0 % (0-6); HEMATOCRIT 37.7 % (42.0-52.0); HEMOGLOBIN 12.9 g/dl (14.0-17.9); LYMPHOCYTES # (AUTO) 0.5 X10'3 (1.1-4.8); LYMPHOCYTES % (AUTO) 5.8 % (21-51); MEAN CORPUSCULAR HEMOGLOBIN 35.6 PG (27.0-31.0); MEAN CORPUSCULAR HGB CONC 34.2 g/dL (33.0-36.5); MEAN CORPUSCULAR VOLUME 104.2 FL (78-98); MONOCYTES # (AUTO) 0.5 X10'3 (0-0.9); MONOCYTES % (AUTO) 5.2 % (2-12); NEUTROPHILS # (AUTO) 7.7 X10'3 (1.8-7.7); PLATELET COUNT 193 X10'3 (140-440); RED BLOOD COUNT 3.61 X10'6 (4.70-6.10); RED CELL DISTRIBUTION WIDTH 14.5 % (11.5-14.5); WHITE BLOOD COUNT 8.7 X10'3 (4.5-11.0)
[2020-08-11 06:10] LABS: ALANINE AMINOTRANSFERASE 68 U/L (12-78); ALBUMIN/GLOBULIN RATIO 1.1 (1.1-1.5); ALKALINE PHOSPHATASE 48 IU/L (46-116); ANION GAP 6 (8-16); ASPARTATE AMINO TRANSFERASE 76 U/L (10-37); BILIRUBIN,TOTAL 0.7 MG/DL (0.1-1.0); BLOOD UREA NITROGEN 45 MG/DL (7-18); BUN/CREATININE RATIO 31.3 (5.4-32.0); CALCIUM 8.7 MG/DL (8.5-10.1); CHLORIDE 99 MMOL/L (99-107); CREATININE 1.44 MG/DL (0.60-1.10); GLUCOSE 155 MG/DL (70-104); MAGNESIUM 2.8 MG/DL (1.5-2.4); POTASSIUM 4.7 MMOL/L (3.5-5.1); SODIUM 135 MMOL/L (135-145); TOTAL CARBON DIOXIDE 30.1 MMOL/L (24-32); TOTAL PROTEIN 7.5 G/DL (6.4-8.2); eGFR 51 ML/MIN
--- NOTE | 2020-08-11 06:34 | NUR ---
Patient in room PCU 3023. I have received report from Long EWING and had the opportunity to ask questions and assume patient care.
[2020-08-11] MEDS: CefTRIAXone 2gm/D5W 50ml BAG 50 ML IV SCH (07:04)
[2020-08-11] MEDS: benztropine 1mg tablet PO SCH (07:04)
[2020-08-11] MEDS: docusate sod 100mg capsule PO SCH (07:04)
[2020-08-11] MEDS: methylPREDNISolone sod succ 125mg/2ml vial IV SCH (07:04)
[2020-08-11 07:05] VITALS: BP_SYST 132
[2020-08-11] MEDS: nicotine 14mg patch - 24hr TD SCH (07:05)
[2020-08-11] MEDS: magnesium hydroxide 30ml (MOM) UD suspension PO PRN (07:15)
--- NOTE | 2020-08-11 07:37 | NUR ---
Paged Dr. Alejandra PAGER ID: [phone] MESSAGE: Re: AbelMilton RM [id number]. Pt is wanting to leave AMA. Please advise? Florinda RN [phone] Patient very upset and wanting to leave AMA. Advised and educated pt on what that looks like and that the hospital nor is responsible for any/ further medical responsibility. Awaiting MD or pt to sign.
--- NOTE | 2020-08-11 07:38 | NUR ---
Left message for Edenilson, brother, in regards to pt leaving AMA.
[2020-08-11] MEDS ORDERED: lisinopril 20mg tablet PO SCH (08:00)
[2020-08-11] MEDS ORDERED: DAPSONE 100 MG TABLET PO SCH (08:00)
--- NOTE | 2020-08-11 08:15 | NUR ---
Patient signed AMA form, all lines were DCD, patient was clothed in regular clothing and tele removed, PIV removed and Mid line removed. Patient tolerated well. Patient unable to contact ride home.
--- NOTE | 2020-08-11 09:01 | NUR ---
Patient was unable to obtain a ride. Patient was escorted to elevator and out to the streets. Occurrence report will be completed.
[2020-08-11] MEDS ORDERED: LORazepam 2 mg/ml vial IV PRN (11:40)
[2020-08-11] MEDS ORDERED: LORazepam 1 MG tablet PO PRN (11:40)
[2020-08-11] MEDS ORDERED: rivaroxaban 20mg tablet PO SCH (17:00)
[2020-08-11] MEDS ORDERED: polyethylene glycol 3350 17gm powd pack PO SCH (21:00)
[2020-08-13] MEDS ORDERED: LORazepam 2 mg/ml vial IV PRN (11:40)
[2020-08-13] MEDS ORDERED: LORazepam 1 MG tablet PO PRN (11:40)
== END 2020-08-11 09:18 | disposition left against medical advice (07) | DRG 140 ==
LOC: ER 10:12 → ED HOLD 11:39 → PCU 3S 12:51
PROVIDERS: ADMIT Internal Medicine; ATTEND Internal Medicine
PROC: 02HV33Z Insertion of Infusion Device into Superior Vena Cava, Percutaneous Approach (ICD-10-PCS; principal; 2020-08-10)
DX: J44.1 Chronic obstructive pulmonary disease with (acute) exacerbation (principal); E66.01 Morbid (severe) obesity due to excess calories; E87.1 Hypo-osmolality and hyponatremia; F10.230 Alcohol dependence with withdrawal, uncomplicated; F12.90 Cannabis use, unspecified, uncomplicated; Z66 Do not resuscitate; B19.20 Unspecified viral hepatitis C without hepatic coma; F17.210 Nicotine dependence, cigarettes, uncomplicated; G25.0 Essential tremor; Z53.29 Procedure and treatment not carried out because of patient's decision for other reasons; Z79.01 Long term (current) use of anticoagulants; Z86.718 Personal history of other venous thrombosis and embolism; Z88.2 Allergy status to sulfonamides; Z68.28 Body mass index [BMI] 28.0-28.9, adult; Z71.41 Alcohol abuse counseling and surveillance of alcoholic; Z71.51 Drug abuse counseling and surveillance of drug abuser; Z71.6 Tobacco abuse counseling
CPT/HCPCS: 36415; 36600; 71250; 76937; 80053; 82803; 83605; 83735; 83880; 85018; 85025; 87081; 93005; 93306; 93308; 94640; 94760; 97110; 97162; 99285; G0378; J0696; J1644; J2060; J2270; J2930